=== PATIENT | female | born 1965 | race Caucasian/White ===

== ENCOUNTER 2017-03-04 10:51 | Emergency (ER) | payer BC ==
[2017-03-04 11:13] VITALS: BP 168/107
--- NOTE | 2017-03-04 12:03 | RAD ---
HISTORY: Right great toe pain, trauma COMPARISONS: None VIEWS: 3, Frontal, lateral, and oblique views of the right foot FINDINGS: BONE DENSITY: Normal. BONES: There is no displaced fracture. There are calcaneal enthesophytes JOINTS: There is mild osteoarthritis of the first MTP joint ALIGNMENT: There is no dislocation. SOFT TISSUES: Unremarkable. OTHER FINDINGS: None. IMPRESSION: NO ACUTE OSSEOUS INJURY. IF SYMPTOMS PERSIST, RECOMMEND REPEAT IMAGING.
--- NOTE | 2017-03-04 13:41 | UC ---
Dhruv Pa Angela, scribed for Bijan Ballard MD on 03/04/17 at 1151 . Lower Extremity/Ankle HPI - HPI Summary HPI Summary: This pt is a 51 y/o female presenting to [facility] c/o right great toe pain and swelling x1 month. Pt denies any injury or trauma to her foot. Pt has difficulty bending her toe, difficulty bearing weight and difficulty ambulating secondary to pain. She notes it is painful to wear shoes. Pt denies leg pain, redness, or warmth. Pt denies PMHx of DM, gout. - History of Current Complaint Chief Complaint: UCLowerExtremity Stated Complaint: TOE INJURY Time Seen by Provider: 03/04/17 11:17 Hx Obtained From: Patient Hx Last Menstrual Period: 5-6 Weeks Ago Onset/Duration: Lasting Weeks Pain Intensity: 5 Pain Scale Used: 0-10 Numeric Aggravating Factor(s): Ambulation Alleviating Factor(s): Nothing - Allergies/Home Medications Allergies/Adverse Reactions: Allergies Allergy/AdvReac Type Severity Reaction Status Date / Time No Known Allergies Allergy Verified 03/04/17 11:08 Home Medications: Home Medications DULoxetine DR CAP* [Cymbalta CAP*] 1 cap PO DAILY 03/04/17 [History Confirmed ] celeCOXIB CAP* [Celebrex CAP*] 1 cap PO DAILY 03/04/17 [History Confirmed ] PMH/Surg Hx/FS Hx/Imm Hx Other Endocrine History: DENIES: Diabeter, gout Cardiovascular History: Hypertension - Surgical History Surgical History: Yes [facility] - Social History Alcohol Use: Daily Substance Use Type: None Smoking Status (MU): Former Smoker Type: Cigarettes Amount Used/How Often: 1/4 PPD Length of Time of Smoking/Using Tobacco: On and Off 8 Years Have You Smoked in the Last Year: No When Did the Patient Quit Smoking/Using Tobacco: ~1998 - Immunization History Most Recent Influenza Vaccination: 2016 Review of Systems Constitutional: Negative Skin: Negative Eyes: Negative ENT: Negative Respiratory: Negative Cardiovascular: Negative Gastrointestinal: Negative Genitourinary: Negative Motor: Decreased ROM - right great toe. Musculoskeletal: Other: - Right toe pain and swelling. Neurological: Negative All Other Systems Reviewed And Are Negative: Yes Physical Exam Triage Information Reviewed: Yes Vital Signs: Initial Vital Signs Temp 98.2 F 03/04/17 11:09 Pulse 69 03/04/17 11:09 Resp 16 03/04/17 11:09 BP 168/107 03/04/17 11:09 Pulse Ox 100 03/04/17 11:09 Vital Signs Reviewed: Yes - Additional Comments The patient is well-nourished in no acute distress and in no acute pain. The skin is warm and dry and skin color reflects adequate perfusion. HEENT: The head is normocephalic and atraumatic. Neck is supple with full range of motion and non-tender. There are no carotid bruits. There is no neck vein distension. Respiratory: Chest is non-tender. Lungs are clear to auscultation and breath sounds are symmetrical and equal. Cardiovascular: Hear is regular rate and rhythm. There is no murmur or rub auscultated. There is no peripheral edema and pulses are symmetrical and equal. Abdomen: The abdomen is soft and non-tender. There are normal bowel sounds heard in all four quadrants and there is no organomegaly palpated. Musculoskeletal: There is no back pain noted. Extremities are non-tender with full range of motion. There is no tenderness in knee or ankle. There is no red streak. There is pain on the first right toe in the interphalangeal and proximal phalanx. There is no crepitance. There is decreased flexion of the right great toe and decreased extension. The capillary refill is 4 seconds, it is not red and not warm. Neurological: Patient is alert and oriented to person, place and time. The patient has symmetrical motor strength in all four extremities. Psychiatric: The patient has an appropriate affect and does not exhibit any anxiety or depression. Diagnostics - Radiology XR of Right Foot Xray Interpretation: No Acute Changes - IMPRESSION: No acute osseous injury. If symptoms persist, recommend repeat imaging. Radiology Interpretation Completed By: Radiologist Lower Extremity Course/Dx - Course Course Of Treatment: Elevated blood pressure noted. Pt will be discharged with a CAM walker and anti-inflammatories. - Differential Dx/Diagnosis Differential Diagnosis/HQI/PQRI: Fracture (Closed), Gout, Infection, Sprain Provider Diagnoses: Sprain of right great toe. Discharge - Discharge Plan Condition: Stable Disposition: HOME Prescriptions: Meloxicam(NF) [Mobic(NF)] 7.5 mg PO BID #60 tab Patient Education Materials: Sprain (ED) Referrals: Elmer Winston MD [Primary Care Provider] - Marcelo Holman MD [Medical Doctor] - Additional Instructions: Your blood pressure was elevated at this visit. Please follow up with your primary care provider for a blood pressure reading. You are being discharged with a CAM walker and anti-inflammatories. Follow up with Dr. Holman regarding your toe sprain. The documentation as recorded by the Dhruv francois Angela accurately reflects the service I personally performed and the decisions made by me, Bijan Ballard MD.
== END 2017-03-04 12:34 | disposition home or self-care (01) ==
LOC: UCEAST 10:51
DX: S93.501A Unspecified sprain of right great toe, initial encounter (principal); X58.XXXA Exposure to other specified factors, initial encounter; Y93.9 Activity, unspecified; Y92.9 Unspecified place or not applicable; I10 Essential (primary) hypertension; Z87.891 Personal history of nicotine dependence
CPT/HCPCS: 99212; G0463

== ENCOUNTER 2017-06-16 13:22 | Emergency (ER) | payer BC ==
--- NOTE | 2017-06-16 14:06 | UC ---
Skin Complaint HPI - HPI Summary HPI Summary: Pt presents with tick bite to upper back. She is unsure how long the tick has been present. First noticed today and came right here. Denies fever, chills, SOB , chest pain, abdominal pain, N/V/D/C, headache, or joint pain. - History of Current Complaint Hx Obtained From: Patient Hx Last Menstrual Period: post menopausal ?: No Onset/Duration: Sudden Onset <Paul Carranza - Last Filed: 06/16/17 14:15> <Loulou Smith - Last Filed: 06/17/17 14:34> - History of Current Complaint Chief Complaint: UCGeneralIllness Time Seen by Provider: 06/16/17 13:58 Stated Complaint: TICK BITE - Allergy/Home Medications Allergies/Adverse Reactions: Allergies Allergy/AdvReac Type Severity Reaction Status Date / Time No Known Allergies Allergy Verified 03/04/17 11:08 Review of Systems Constitutional: Negative Skin: Other - Tick bite upper back Respiratory: Negative Cardiovascular: Negative Gastrointestinal: Negative Genitourinary: Negative Motor: Negative Neurovascular: Negative Musculoskeletal: Negative Neurological: Negative All Other Systems Reviewed And Are Negative: Yes <Paul Carranza - Last Filed: 06/16/17 14:15> PMH/Surg Hx/FS Hx/Imm Hx Previously Healthy: Yes Psychological History: Anxiety, Depression - Surgical History Surgical History: Yes Surgery Procedure, Year, and Place: appy. tubaligation - Social History Occupation: Employed Full-time Lives: With Family Alcohol Use: Daily Substance Use Type: None Smoking Status (MU): Former Smoker Type: Cigarettes Amount Used/How Often: 1/4 PPD Length of Time of Smoking/Using Tobacco: On and Off 8 Years Have You Smoked in the Last Year: No When Did the Patient Quit Smoking/Using Tobacco: ~1998 - Immunization History Most Recent Influenza Vaccination: 2015 <Paul Carranza - Last Filed: 06/16/17 14:15> Physical Exam Triage Information Reviewed: Yes Appearance: Well-Appearing, Well-Nourished Vital Signs: Initial Vital Signs Temp 98.1 F 06/16/17 13:33 Pulse 103 06/16/17 13:33 Resp 18 06/16/17 13:33 BP 158/87 06/16/17 13:33 Pulse Ox 99 06/16/17 13:33 Vital Signs Reviewed: Yes Neck: Positive: Supple, Nontender, No Lymphadenopathy Respiratory: Positive: Chest non-tender, Lungs clear, Normal breath sounds, No respiratory distress, No accessory muscle use Cardiovascular: Positive: RRR, No Murmur, Pulses Normal Neurological: Positive: Alert, Muscle Tone Normal Psychological: Positive: Age Appropriate Behavior Skin: Positive: Other - There is a 5mm diameter area of erythema with a tick in the center. The tick is not engorged. There is no edema, streaking, bleeding, or draining. <Paul Carranza - Last Filed: 06/16/17 14:15> Vital Signs: Initial Vital Signs Temp 98.1 F 06/16/17 13:33 Pulse 103 06/16/17 13:33 Resp 18 06/16/17 13:33 BP 158/87 06/16/17 13:33 Pulse Ox 99 06/16/17 13:33 <Loulou Smith - Last Filed: 06/17/17 14:34> Course/Dx - Course Course Of Treatment: Tick was removed with tick tweezers. No remains were left. Pt tolerated procedure well. Unsure how long the tick has been attached - treatment options were dicussed and pt elected for 200mg doxycycline now. - Differential Diagnoses - Skin Complaint Differential Diagnoses: Drug Rash, Tick Born Illness - Diagnoses Provider Diagnoses: Tick bite upper back <Paul Carranza - Last Filed: 06/16/17 14:15> Discharge <Paul Carranza - Last Filed: 06/16/17 14:15> <Loulou Smith - Last Filed: 06/17/17 14:34> - Discharge Plan Condition: Stable Disposition: HOME Patient Education Materials: Lyme Disease (ED), Tick Bite (ED) Referrals: Elmer Winston MD [Primary Care Provider] - Additional Instructions: If you develop a fever, SOB, chest pain, new or worsening symptoms - please call your PCP or go to the ED. Your blood pressure was high at todays visit. Please see your primary provider within 4 weeks for recheck and re-evaluation. Monitor for signs and symptoms of lyme disease, such as a bulls eye rash, headache, neck pain, fatigue, joint pain or swelling. Attestation Statement User Type: Provider - I was available for consult. This patient was seen by the NORBERTO. The patient was not presented to, seen by, or examined by me. -Krissy <Loulou Smith - Last Filed: 06/17/17 14:34>
[2017-06-16] MEDS ORDERED: DOXYcycline CAP(*) 100 MG PO ONE (14:08)
[2017-06-16 14:22] VITALS: BP 151/91
== END 2017-06-16 14:17 | disposition home or self-care (01) ==
LOC: UCEAST 13:22
DX: S20.469A Insect bite (nonvenomous) of unspecified back wall of thorax, initial encounter (principal); W57.XXXA Bitten or stung by nonvenomous insect and other nonvenomous arthropods, initial encounter; Y93.9 Activity, unspecified; Y92.9 Unspecified place or not applicable; F41.9 Anxiety disorder, unspecified; F32.9 Major depressive disorder, single episode, unspecified; Z87.891 Personal history of nicotine dependence
CPT/HCPCS: 99212; A9270-GY; G0463

== ENCOUNTER 2017-09-03 12:34 | Emergency (ER) | payer BC ==
[2017-09-03 14:10] VITALS: BP 151/91
--- NOTE | 2017-09-03 14:57 | UC ---
Respiratory Complaint HPI - HPI Summary HPI Summary: 51 yo female with bilateral ear ache and and nasal congestion and facial pain no f/c no n/v/d - History of Current Complaint Chief Complaint: UCRespiratory Stated Complaint: EARS/ADRIÁN/COUGH Time Seen by Provider: 09/03/17 14:44 Hx Obtained From: Patient Hx Last Menstrual Period: post menopausal Onset/Duration: Sudden Onset Timing: Constant Severity Currently: Mild Pain Intensity: 4 Pain Scale Used: 0-10 Numeric Character: Cough: Nonproductive Aggravating Factors: Nothing Associated Signs And Symptoms: Positive: Nasal Congestion, Hoarseness, Sinus Discomfort - Allergies/Home Medications Allergies/Adverse Reactions: Allergies Allergy/AdvReac Type Severity Reaction Status Date / Time No Known Allergies Allergy Verified 09/03/17 14:03 PMH/Surg Hx/FS Hx/Imm Hx Previously Healthy: Yes - Surgical History Surgical History: Yes Surgery Procedure, Year, and Place: appy. tubaligation - Social History Alcohol Use: Daily Alcohol Amount: 2-3 beers Substance Use Type: None Smoking Status (MU): Former Smoker Type: Cigarettes Amount Used/How Often: 1/4 PPD Length of Time of Smoking/Using Tobacco: On and Off 8 Years Have You Smoked in the Last Year: No When Did the Patient Quit Smoking/Using Tobacco: ~1998 - Immunization History Most Recent Influenza Vaccination: 2016 Review of Systems Constitutional: Negative Skin: Negative Eyes: Negative ENT: Sore Throat, Nasal Discharge, Sinus Congestion, Sinus Pain/Tenderness Respiratory: Negative Cardiovascular: Negative Gastrointestinal: Negative Genitourinary: Negative Motor: Negative Neurovascular: Negative Musculoskeletal: Negative Neurological: Negative Psychological: Negative Is Patient Immunocompromised?: No All Other Systems Reviewed And Are Negative: Yes Physical Exam Triage Information Reviewed: Yes Appearance: Well-Appearing, No Pain Distress, Well-Nourished Vital Signs: Initial Vital Signs Temp 99.6 F 09/03/17 14:04 Pulse 84 09/03/17 14:04 Resp 20 09/03/17 14:04 BP 151/91 09/03/17 14:04 Pulse Ox 95 09/03/17 14:04 Vital Signs Reviewed: Yes Eyes: Positive: Conjunctiva Clear ENT: Positive: Hearing grossly normal, Dental tenderness, Sinus tenderness, Uvula midline. Negative: Nasal congestion, Nasal drainage, Tonsillar swelling, Tonsillar exudate Neck: Positive: Supple, Nontender, No Lymphadenopathy Respiratory: Positive: Lungs clear, Normal breath sounds, No respiratory distress Cardiovascular: Positive: RRR, No Murmur Musculoskeletal: Positive: ROM Intact, No Edema Neurological: Positive: Alert Psychological Exam: Normal Skin Exam: Normal UC Diagnostic Evaluation - Laboratory O2 Sat by Pulse Oximetry: 95 - low normal/not hypoxic Respiratory Course/Dx - Differential Dx/Diagnosis Provider Diagnoses: bilateral serous otitis media Discharge - Discharge Plan Condition: Stable Disposition: HOME Prescriptions: Amoxicillin PO (*) [Amoxicillin 875 MG (*)] 875 mg PO BID #20 tab Patient Education Materials: Serous Otitis Media (ED) Referrals: Elmer Winston MD [Primary Care Provider] - 2 Weeks
== END 2017-09-03 15:04 | disposition home or self-care (01) ==
LOC: UCCORT 12:34
DX: H65.93 Unspecified nonsuppurative otitis media, bilateral (principal); Z87.891 Personal history of nicotine dependence
CPT/HCPCS: 99212; G0463